=== PATIENT | female | born 1955 | race Caucasian/White ===

== ENCOUNTER → 2016-10-20 | Outpatient (CLI) | payer OTHER | LOC: FIMAGING 13:10 | DX: Z12.31 Encounter for screening mammogram for malignant neoplasm of breast (principal); Z80.3 Family history of malignant neoplasm of breast | CPT/HCPCS: G0202 ==

== ENCOUNTER → 2017-11-09 | Outpatient (CLI) | payer OTHER | LOC: FIMAGING 12:57 | PROVIDERS: ATTEND Family Medicine Sports Medicine | DX: Z12.31 Encounter for screening mammogram for malignant neoplasm of breast (principal); Z80.3 Family history of malignant neoplasm of breast ==

== ENCOUNTER → 2019-01-05 | Outpatient (CLI) | payer OTHER | LOC: FIMAGING 13:04 | PROVIDERS: ATTEND Family Medicine Sports Medicine | DX: Z12.31 Encounter for screening mammogram for malignant neoplasm of breast (principal); Z80.3 Family history of malignant neoplasm of breast ==